=== PATIENT | female | born 1950 | race Caucasian/White ===

== ENCOUNTER 2019-02-23 14:02 | Inpatient (IN) ==
[2019-02-23 14:50] LABS: BASO# 0.04 X1000 (0.0-0.2); BASO% 0.4 % (0.0-0.8); EOS# 0.17 X1000 (0.0-0.7); EOS% 1.8 % (0.0-10.0); HEMATOCRIT 41.5 % (37.0-47.0); HEMOGLOBIN 13.8 g/dL (12.0-16.0); IMM GRAN# 0.04 X1000 (0.0-0.04); IMM GRAN% 0.4 % (0.0-0.5); LYMPH# 2.34 X1000 (1.2-3.4); LYMPH% 24.2 % (20.5-51.1); MCH 33.9 PG (27-31); MCHC 33.3 g/dL (33-37); MONO# 0.66 X1000 (0.11-0.59); MONO% 6.8 % (1.7-9.3); MPV 10.7 FL (7.4-10.4); NEUT# 6.43 X1000 (1.4-6.5); NEUT% 66.4 % (42.2-75.2); PLT 212 X1000 (130-400); RBC 4.07 XMIL (4.2-5.4); RDW 14.3 % (11.5-14.5); WBC 9.68 X1000 (4.8-10.8)
[2019-02-23 15:06] LABS: AGAP 11; ALB/GLOB RATIO 1.5; ALBUMIN 3.8 g/dL (3.5-5.0); ALKALINE PHOSPHATASE 29 U/L (32-104); BUN 9 mg/dL (8-22); CALCIUM 8.3 mg/dL (8.8-10.2); CHLORIDE 99 mmol/L (98-107); COSMO 269; CREATININE 0.7 mg/dL (0.5-0.9); ESTIMATED GFR > 60; GLUCOSE 103 mg/dL (70-104); GOT 172 U/L (10-30); GPT 125 U/L (10-36); POTASSIUM 3.2 mmol/L (3.5-5.1); SODIUM 135 mmol/L (136-145); TCO2 25 mmol/L (25-35); TOTAL PROTEIN 6.4 g/dL (6.3-8.3)
--- NOTE | 2019-02-23 15:08 | Diag Imaging Result Doc PS360 ---
EXAM: CT HEAD/C-SPINE W/O CONTRAST 02/23/2019 HISTORY: head contusion TECHNIQUE: This exam was performed using automated exposure control, adjustment of mA or kV according to patient size, and/or use of iterative reconstruction technique. COMMENT: There is no evidence of mass effect, bleed, or abnormal extra-axial fluid collection. There are some patchy subcortical white matter lucencies bilaterally consistent with chronic microvascular white matter disease. The visualized paranasal sinuses are clear. The calvarium is intact. Cervical spine: There are severe degenerative facet changes present at C3-4 and C4-5 on the left side. There is no evidence of fracture subluxation or prevertebral soft tissue swelling. There are calcifications in the disc spaces at C2-3, C3-4, C4-5 and C5-6 with osteophyte formation at the disc space at C7-T1. IMPRESSION: Chronic ischemic microvascular white matter disease. Degenerative disc disease and facet arthropathy. No evidence of acute bony abnormality in the cervical spine. Electronically signed by Jona Gutierrez 02/23/2019 3:06 PM
--- NOTE | 2019-02-23 15:25 | Diag Imaging Result Doc PS360 ---
EXAM: HIP W/PELVIS BILAT 2 VIEWS 02/23/2019 HISTORY: fall TECHNIQUE: AP pelvis and bilateral hips COMMENT: There is some calcium pyrophosphate deposition in the symphysis pubis. The joint spaces appear to be well maintained. There is no evidence of fracture or dislocation. IMPRESSION: No evidence of acute bony disease. Electronically signed by Jona Gutierrez 02/23/2019 3:22 PM
[2019-02-23 18:06] LABS: URINE SOURCE CATH
[2019-02-23 18:10] LABS: BILIRUBIN URINE NEGATIVE (NEGATIVE); BLOOD URINE NEGATIVE (NEGATIVE); COLOR YELLOW; GLUCOSE URINE NEGATIVE (NEGATIVE); KETONE URINE NEGATIVE (NEGATIVE); LEUKOCYTES URINE NEGATIVE (NEGATIVE); NITRITE URINE NEGATIVE (NEGATIVE); PH URINE 6.5; PROTEIN URINE NEGATIVE (NEGATIVE); TURBIDITY URINE CLEAR (CLEAR); UROBILINOGEN URINE NORMAL (NORMAL)
[2019-02-23 18:11] LABS: UR EPITHELIAL CELLS <10 /HPF (<10); URINE BACTERIA 2+ /HPF; URINE RBC <10 /HPF (<10); URINE WBC <10 /HPF (<10)
--- NOTE | 2019-02-23 18:56 | PROVIDER DOCUMENTATION ---
This chart was entered by Kell Nascimento Scribe, acting as scribe for Elliott Keen DO. HPI-Musculoskeletal Pain/Inj - GENERAL Chief Complaint: Fall Stated Complaint: fall from standing Time Seen by Provider: 02/23/19 14:06 Source: patient, EMS (first response) - HX OF PRESENT ILLNESS-MUSKULOSKELTAL Nature of Presenting Problem: 69 yowf presents to the ed via ems with c/o BLE weakness, occipital head tenderness 2cm area post fall in her kitchen, bilateral hip pain and lumbar pain. pt sts she was in her kitchen feeding her littledog and fgelt her BLE get weak. pt fell down to the floor landing on her buttocks and then hitting her occipital head on the kitchen floor Quality of Pain: reports: aching Severity in ED: moderate Onset/Duration: just prior to arrival Timing: improving, intermittent Modifying Factors: improves with: nothing Any recent injury?: Yes Locality of Occurance: Home Similar Symptoms Previously?: Yes Recently seen or treated by another doctor?: No - FALL INJURY Location of Pain/Injury: reports: head (occipital), back (lumbar), lower extremity (weakness) Reason for Fall: reports: other (became weak in BLE) Symptoms prior to fall:: reports: none Loss of Consciousness: no loss of consciousness Injury Associated Symptoms: reports: back/neck pain (lumbar), headaches (occipital), joint pain (bilateral hip pain). denies: chest pain, diaphoresis, dizziness, snap/crack/pop sensation, trouble walking Review of Systems - Adult - REVIEW OF SYSTEMS - ADULT Constitutional: denies: chills, fever Eyes: denies: blurred vision, double vision Ears, Nose, Mouth & Throat: reports: no symptoms reported Cardiovascular: denies: chest pain, palpitations, syncope Respiratory: denies: shortness of breath, wheezing Gastrointestinal: denies: abdominal pain, diarrhea, nausea, vomiting Genitourinary: reports: no symptoms reported Musculoskeletal: reports: see HPI, back pain (lumbar), joint pain (bilateral). denies: neck pain Integumentary: reports: no symptoms reported Neurological: reports: see HPI, headache/migraines (occipital tenderness 2cm). denies: ataxia, dizziness/vertigo, loss of balance, numbness, paresthesia, seizure, slurred speech, syncope, tremors Psychiatric: reports: no symptoms reported Endocrine: reports: no symptoms reported Hematologic/Lymphatic: reports: no symptoms reported Allergic/Immunologic: reports: no symptoms reported All Other Systems: Reviewed and Negative Past History - Adult - PAST MEDICAL HISTORY-ADULT Review of Records: reports: Nursing Assessment Review, Medications Reviewed Major Childhood Illnesses: reports: denies history Cardiovascular: reports: HTN Respiratory: reports: denies history Gastrointestinal: reports: GERD Obstetrical/Gynecological: reports: denies history Genitourinary: reports: denies history Musculoskeletal: reports: denies history Neurological: reports: denies history Endocrine/Immune: reports: denies history Other Conditions: reports: denies history - PRIOR SURGERIES/PROCEDURES Surgical/Procedure History: reports: reviewed, not pertinent - IMMUNIZATION STATUS Childhood Immunizations: See Nurse Assessment Flu Vaccine: See Nurse Assessment - FAMILY HISTORY Family History: reviewed, not pertinent - SOCIAL HISTORY Smoking: denies Substance Use: denies Alcohol Use Frequency: never Living Situation: family Physical Exam-Injury Related - Physical Exam-Injury Related Initial Vital Signs Reviewed: Yes General Appearance: appears well, alert, no apparent distress, obese Eyes: PERRL/EOMI, pink conjunctivae Head, Ears, Nose, Mouth & Throat: normocephalic/atraumatic, moist mucous memb ranes, normal ENT inspection Neck: non-tender, full range of motion, supple, normal inspection Respiratory: chest non-tender, lungs clear, normal breath sounds Cardiovascular: normal peripheral pulses, regular rate, rhythm Chest/Breast: deferred Abdominal Exam: normal bowel sounds, non tender, soft Female Genitalia/Pelvic Exam: deferred Rectal Exam: deferred Hemoccult Exam: deferred Lymphatic: no adenopathy Back Exam: normal inspection, other (lumbar tenderness to palpation) Extremity: normal range of motion, normal inspection, no pedal edema, no calf tenderness, normal capillary refill, tenderness (bilateral tenderness hips) Integumentary: normal color, warm/dry Neurologic: grossly normal, no motor/sensory deficits Psych/Mental Status: normal mood/affect, normal thought content, normal thought process, oriented x 3 - Glascow Coma Score Best Eye Response ([place]): (4) open spontaneously Best Verbal Response ([place]): (5) oriented Best Motor Response ([place]): (6) obeys commands [place] Total: 15 Progress - PLAN OF CARE/RESULTS Progress/Plan/Lab Results: Vital Signs - 8 hr 02/23/19 14:10 02/23/19 15:40 02/23/19 15:50 Temperature 97.8 F Pulse Rate 83 Respiratory Rate 18 Blood Pressure 152/58 O2 Sat by Pulse Oximetry 94 L 95 94 L 02/23/19 16:00 02/23/19 16:02 02/23/19 16:10 Temperature Pulse Rate Respiratory Rate Blood Pressure 119/84 O2 Sat by Pulse Oximetry 94 L 95 95 02/23/19 16:20 02/23/19 16:30 02/23/19 17:02 Temperature Pulse Rate Respiratory Rate Blood Pressure 107/63 O2 Sat by Pulse Oximetry 96 98 95 02/23/19 17:10 02/23/19 18:02 Temperature 98.6 F Pulse Rate 80 Respiratory Rate 18 Blood Pressure 150/58 O2 Sat by Pulse Oximetry 95 95 Laboratory Results - last 24 hr 02/23/19 02/23/19 02/23/19 14:36 14:36 17:58 WBC 9.68 RBC 4.07 L Hgb 13.8 Hct 41.5 MCV 102.0 H MCH 33.9 H MCHC 33.3 RDW Std Deviation 14.3 Plt Count 212 MPV 10.7 H Immature Gran % (Auto) 0.4 Neut % (Auto) 66.4 Lymph % (Auto) 24.2 [place] % (Auto) 6.8 Eos % (Auto) 1.8 Baso % (Auto) 0.4 Immature Gran # (Auto) 0.04 Neut # (Auto) 6.43 Lymph # (Auto) 2.34 [place] # (Auto) 0.66 H Eos # (Auto) 0.17 Baso # (Auto) 0.04 Sodium 135 L Potassium 3.2 L Chloride 99 Carbon Dioxide 25 Anion Gap 11 BUN 9 Creatinine 0.7 Estimated GFR/1.73 m2 > 60 BUN/Creatinine Ratio 13 Glucose 103 Calculated Osmolality 269 Calcium 8.3 L Total Bilirubin 0.50 AST 172 H ALT 125 H Alkaline Phosphatase 29 L Total Protein 6.4 Albumin 3.8 Globulin 2.6 Albumin/Globulin Ratio 1.5 Urine Source CATH Urine Color YELLOW Urine Turbidity CLEAR Urine pH 6.5 Ur Specific [place] 1.000 Urine Protein NEGATIVE Ur Glucose (Stick) NEGATIVE Ur Ketones (Stick) NEGATIVE Urine Blood NEGATIVE Urine Nitrite NEGATIVE Urine Bilirubin NEGATIVE Urobilinogen Dipstick NORMAL Urine Leukocytes NEGATIVE Urine WBC (Auto) <10 Urine RBC (Auto) <10 U Epithel Cells (Auto) <10 Urine Bacteria (Auto) 2+ Orders Category Date Time Status CT HEAD/C-SPINE W/O CONTRAST [CT] Stat Exams 02/23/19 14:15 Completed HIP W/PELVIS BILAT 2 VIEWS [RAD] Stat Exams 02/23/19 14:16 Completed CBC WITH ELECTRONIC DIFF [HEME] Stat Lab 02/23/19 14:36 Completed COMPREHENSIVE METABOLIC PANEL [CHEM] Stat Lab 02/23/19 14:36 Completed UA NIMS W/REFLEX CULT [URINALYSIS] Stat Lab 02/23/19 17:58 Completed URINE CULTURE [RM] Routine Lab 02/23/19 18:14 Received EKG [EKG] Stat Ther 02/23/19 14:20 Ordered Result Diagrams: 02/23/19 14:36 02/23/19 14:36 - REASSESSMENT Reassessment #1 Time Reassessed: 14:23 Status: improving - EKG 1 Time of EKG reading by physician:: 15:27 EKG Read and Signed by:: Elliott Keen EKG Interpretation (*Must complete 3 of following elements*): Abnormal Rate: 52 Rhythm: sinus sophia [place]: normal QRS: RBB (incomplete) OK Interval: normal ST Wave: normal Comments: st and t wave abnormality, consider anterior ischemia - XRAY 1 XRAY: Bilateral XRAY Study: Pelvis, Hip Impression: See EMR Report (EXAM: HIP W/PELVIS BILAT 2 VIEWS 02/23/2019 HISTORY: fall TECHNIQUE: AP pelvis and bilateral hips COMMENT: There is some calcium pyrophosphate deposition in the symphysis pubis. The joint spaces appear to be well maintained. There is no evidence of fracture or dislocation. IMPRESSION: No evidence of acute bony disease. Electronically signed by Jona Gutierrez 02/23/2019 3:22 PM 02/23/19 1522 Interpreting Physician: Jona Gutierrez MD Dictated Date/Time: 02/23/19 1521 cc: Elliott Keen DO;) - CT/MRI 1 CT Study: Cervical Spine, Head Impression: See EMR Report (EXAM: CT HEAD/C-SPINE W/O CONTRAST 02/23/2019 HISTORY: head contusion TECHNIQUE: This exam was performed using automated exposure control, adjustment of mA or kV according to patient size, and/or use of iterative reconstruction technique. COMMENT: There is no evidence of mass effect, bleed, or abnormal extra-axial fluid collection. There are some patchy subcortical white matter lucencies bilaterally consistent with chronic microvascular white matter disease. The visualized paranasal sinuses are clear. The calvarium is intact. Cervical spine: There are severe degenerative facet changes present at C3-4 and C4-5 on the left side. There is no evidence of fracture subluxation or prevertebral soft tissue swelling. There are calcifications in the disc spaces at C2-3, C3-4, C4-5 and C5-6 with osteophyte formation at the disc space at C7-T1. IMPRESSION: Chronic ischemic micro vascular white matter disease. Degenerative disc disease and facet arthropathy. No evidence of acute bony abnormality in the cervical spine. Electronically signed by Jona Gutierrez 02/23/2019 3:06 PM 02/23/19 1506 Interpreting Physician: Jona Gutierrez MD Dictated Date/Time: 02/23/19 150 cc: Elliott Keen DO;) - CONSULTS/PCP/HOSPITALIST Notification #1 *Consult/PCP/Hospitalist*: [place] Time Discussed: 18:54 Consult Disposition: Will see in ED Departure - Departure Date of Disposition Decision: 02/23/19 Time of Disposition Decision: 18:55 DIAGNOSIS: Failure to thrive, Fall Disposition: ADMITTED INPATIENT 09 Certified Medical Emergency: Emergent Condition: Fair Referrals and Follow-Ups: None,PCP [Primary Care Provider] - - Critical Care Note This patient required my direct & personal management of CC.: No Attestation - Physician/ JODY Attestation Patient care was provided by Advanced Practice Provider:: No The physician spent face to face time with patient:: Yes Advanced Practice Provider documentation review:: Supervising physician onsite and consulted in the evaluation and care of this patient. The physician did have a face to face encounter with the patient. This chart was documented by the indicated scribe, (Kell Nascimento Scribe) and accurately reflects the services I performed and decisions made by me, Elliott Keen DO, as attested by the provider's signature.
[2019-02-23] MEDS ORDERED: KLOR-CON PO ONE (20:09)
[2019-02-23] MEDS ORDERED: FLEXERIL PO PRN (20:15)
[2019-02-23] MEDS ORDERED: TYLENOL PO PRN (20:16)
[2019-02-23] MEDS ORDERED: ZOFRAN IV PRN (20:16)
[2019-02-23] MEDS ORDERED: NS 1,000 ML IV SCH (20:30)
[2019-02-23] MEDS: FISH OIL CONCENTRATE PO SCH (22:32)
[2019-02-23] MEDS: LYRICA PO SCH (22:33)
[2019-02-23] MEDS: LIPITOR PO SCH (22:33)
[2019-02-23] MEDS: SINEMET 25/100 PO SCH (22:33)
[2019-02-23] MEDS: NORCO-10 PO PRN (22:33)
[2019-02-23] MEDS: XANAX PO SCH (22:33)
[2019-02-23] MEDS: KLOR-CON PO SCH (22:34)
[2019-02-23] MEDS: LOVENOX SUBQ SCH (22:34)
[2019-02-23] MEDS: TRICOR PO SCH (22:49)
[2019-02-23] MEDS: NORVASC PO SCH (23:16)
--- NOTE | 2019-02-24 03:53 | HISTORY AND PHYSICAL ---
PRIMARY CARE PROVIDER: None. CHIEF COMPLAINT: Weakness with fall. HISTORY OF PRESENT ILLNESS: Ms. Beth is a 69-year-old female who came into the emergency room after walking with her dog. She felt weakness in her legs, fell backwards hitting the occipital portion of her head as well as her buttocks. She did not lose consciousness. On arrival to the emergency room, a CT of her head and neck was obtained which showed chronic ischemic microvascular white matter disease, degenerative disk disease and facet arthropathy. No acute intracranial or C-spine process. Hip and pelvis x-rays showed no acute bony disease. She will be admitted to the medical floor further evaluation and treatment. PAST MEDICAL HISTORY: 1. Hypertension. 2. GERD. 3. Tobacco use. 4. Early dementia. 5. Hyperlipidemia. PREVIOUS SURGICAL HISTORY: 1. Hysterectomy. 2. Appendectomy. 3. Back surgery times 2. 4. Lipoma removal times 2 or 3. FAMILY HISTORY: Father had heart and lung disease. The patient states primarily related to COPD and tobacco use. Mother had liver disease from drinking. ALLERGIES: Valium, Levaquin, Xarelto, Requip, simvastatin, Augmentin, penicillin and tetracyclines. HOME MEDICATIONS: 1. Celebrex 50 mg p.o. at bedtime. 2. Xanax 0.5 mg p.o. at bedtime. 3. Norvasc 10 mg p.o. at bedtime. 4. Atenolol 50 mg p.o. daily. 5. Lipitor 80 mg p.o. at bedtime. 6. Carbidopa/levodopa 25/100 p.o. at bedtime. 7. Flexeril 10 mg p.o. t.i.d. 8. TriCor 145 mg p.o. at bedtime. 9. [place] 10 one p.o. t.i.d. 10.Lovaza 1 capsule p.o. b.i.d. 11.Omeprazole 20 mg p.o. daily. 12.Potassium chloride 20 mEq p.o. b.i.d. 13.Lyrica 75 mg p.o. b.i.d. 14.Trazodone 50 mg p.o. daily. REVIEW OF SYSTEMS: Fourteen point review of systems conducted with the patient. She has around a 2 cm sore spot to the occipital portion of her head. She denies other complaints. Other pertinent positives are listed above in the HPI. All other systems reviewed and found to be negative. PHYSICAL EXAMINATION: VITAL SIGNS: Temperature 98, pulse 57, respirations 16, blood pressure 154/59, oxygen saturation 97% on room air. GENERAL: Pleasant 69-year-old female lying in the ER stretcher, answers all questions appropriately. She is alert and oriented times 3. HEENT: Head is normocephalic. A 2-cm raised portion to the occipital portion of her head that is tender to palpation secondary to fall. Pupils are equal, round, reactive to light. Extraocular eye movement is intact. Sclerae are anicteric. Conjunctiva is pink. Oral mucosa is mildly dry. NECK: Supple. No JVD. No thyromegaly. Trachea is midline. No cervical lymphadenopathy. CARDIAC: S1, S2 appreciated. No murmurs, gallops, or rubs. LUNGS: Clear to auscultation bilaterally. No rhonchi, wheezes, rales. Symmetric rise and fall with respirations. ABDOMEN: Soft, nondistended, nontender. Bowel sounds present all 4 quadrants, normoactive. No pulsatile mass. No organomegaly. EXTREMITIES: No clubbing, cyanosis, or edema. One-plus pedal pulses bilaterally. GENITOURINARY: No bladder distention. Patient voids. Otherwise deferred. NEUROLOGICAL: Alert and oriented times 3. Cranial nerves II through XII appear to be grossly intact. DIAGNOSTIC DATA: A CT of the hip and pelvis: No acute bony abnormality. Head and CT: No intracranial process. No C-spine acute process. Degenerative disk disease and chronic microvascular changes were noted. LABORATORY DATA: CBC within normal limits. Sodium 135. Potassium 3.2. Chloride 99. Carbon dioxide 25. BUN 9. Creatinine 0.7. Glucose 103. ALT 125. AST 172. Urine unremarkable. ASSESSMENT AND PLAN: 1. Weakness with fall, aware. Patient is moving her legs well on examination. We will order physical therapy. 2. Transaminitis. Order right upper quadrant ultrasound. I am unsure if this is acute or chronic elevation of her liver enzymes. 3. Hypokalemia. We will 40 mEq of potassium and recheck. 4. Mild fluid volume depletion. Normal saline times 1 L was given in the emergency room. 5. Hypertension and hyperlipidemia. Continue home medications. Further recommendations per patient clinical course. Dictated by LUISA Martínez for Jose Cuadra MD cc: LUISA Martínez MD
[2019-02-24 05:57] LABS: URINE SOURCE CLEAN CATCH
[2019-02-24 06:03] LABS: BILIRUBIN URINE NEGATIVE (NEGATIVE); BLOOD URINE TRACE (NEGATIVE); COLOR YELLOW; GLUCOSE URINE NEGATIVE (NEGATIVE); KETONE URINE NEGATIVE (NEGATIVE); LEUKOCYTES URINE NEGATIVE (NEGATIVE); NITRITE URINE NEGATIVE (NEGATIVE); PH URINE 6.5; PROTEIN URINE NEGATIVE (NEGATIVE); SP GRAVITY URINE 1.002; TURBIDITY URINE HAZY (CLEAR); UROBILINOGEN URINE NORMAL (NORMAL)
[2019-02-24 06:04] LABS: UR EPITHELIAL CELLS <10 /HPF (<10); URINE BACTERIA 4+ /HPF; URINE RBC <10 /HPF (<10); URINE WBC <10 /HPF (<10)
[2019-02-24 07:32] LABS: AGAP 11; ALB/GLOB RATIO 1.6; ALBUMIN 3.5 g/dL (3.5-5.0); ALKALINE PHOSPHATASE 28 U/L (32-104); BUN 9 mg/dL (8-22); CALCIUM 8.7 mg/dL (8.8-10.2); CHLORIDE 108 mmol/L (98-107); COSMO 280; CREATININE 0.6 mg/dL (0.5-0.9); ESTIMATED GFR > 60; GLUCOSE 93 mg/dL (70-104); GOT 122 U/L (10-30); GPT 32 U/L (10-36); SODIUM 141 mmol/L (136-145); TCO2 22 mmol/L (25-35); TOTAL BILIRUBIN 0.53 mg/dL (0.20-1.00); TOTAL PROTEIN 5.7 g/dL (6.3-8.3)
--- NOTE | 2019-02-24 08:22 | Diag Imaging Result Doc PS360 ---
EXAM: US GB < RUQ (LIMITED) 02/24/2019 HISTORY: elevated lfts TECHNIQUE: Right upper quadrant ultrasound COMMENT: The pancreas is unremarkable in appearance. The liver is hyperechoic. The visualized portions of the aorta and inferior vena cava are normal in appearance. The gallbladder is clear and nontender. There is antegrade flow in the portal vein. The right kidney is without evidence of hydronephrosis or mass. There are no abnormal fluid collections. There is no evidence of biliary dilatation the common bile duct measuring 4 mm. IMPRESSION: Hepatic steatosis. Electronically signed by Jona Gutierrez 02/24/2019 8:20 AM
[2019-02-24] MEDS ORDERED: DESYREL PO SCH (09:00)
--- NOTE | 2019-02-24 09:18 | PROGRESS NOTE ---
DATE: 02/24/2019 SUBJECTIVE: Patient has no new complaints. States she still feels generally weak. PHYSICAL EXAMINATION: Vital Signs: Temperature 97.8, pulse 61, respiratory rate 20, BP 124/54. General: The patient is in no current respiratory distress. Very pleasant to talk with. HEENT: Normocephalic. Neck: Supple. Cardiovascular: Regular rate. Chest: Clear and unlabored. Abdomen: Soft and nondistended. Extremities: Moves all extremities. No edema. Neurologic: No focal changes. She is awake, alert, oriented x3. LABS: CMP is essentially normal. AST 122, ALT 32. ASSESSMENT: 1. Generalized weakness. 2. Transaminitis. Right upper quadrant ultrasound is pending. Currently, her liver functions have improved. AST was 172, currently 122. ALT was 125, currently down to 32. Expect this may be chronic. 3. Hyperkalemia. 4. Mild volume depletion. 5. Hypertension. 6. Hyperlipidemia. PLAN: We will continue patient in the hospital. We will attempt to ambulate and hopefully home either today or tomorrow if she improves. cc: Jose Cuadra MD
[2019-02-24] MEDS: KLOR-CON PO SCH ×2 (10:59→20:44)
[2019-02-24] MEDS: LYRICA PO SCH ×2 (10:59→20:43)
[2019-02-24] MEDS: FISH OIL CONCENTRATE PO SCH ×2 (10:59→20:44)
[2019-02-24] MEDS: PRILOSEC PO SCH (10:59)
[2019-02-24] MEDS: TENORMIN PO SCH (10:59)
[2019-02-24] MEDS: NORCO-10 PO PRN ×2 (11:43→20:42)
[2019-02-24] MEDS ORDERED: NICODERM PATCH TD ONE (19:51)
[2019-02-24] MEDS: LIPITOR PO SCH (20:43)
[2019-02-24] MEDS: TRICOR PO SCH (20:43)
[2019-02-24] MEDS: SINEMET 25/100 PO SCH (20:43)
[2019-02-24] MEDS: XANAX PO SCH (20:43)
[2019-02-24] MEDS: NORVASC PO SCH (20:44)
[2019-02-24] MEDS: LOVENOX SUBQ SCH (20:44)
--- NOTE | 2019-02-25 03:49 | HISTORY AND PHYSICAL ---
ADDENDUM: Patient seen and examined by myself. Full note dictated and discussed with nurse practitioner. Patient presented to the hospital with increased generalized weakness, frequent falls. The son notes that she has been more depressed since her brother . She has had decreased oral intake, decreased physical activity. She has known history of DJD, scoliosis, restless legs, fibromyalgia, hypertension, high cholesterol. Interestingly, her liver functions are elevated AST and ALT [*] 70. She has recently had vertigo approximately 2 to 3 months ago when she states that she was told that everything was fine [*] We will admit her to the hospital. Started on IV fluids. Get physical therapy involved and will follow. We will work her for liver function. cc: Jose Cuadra MD
[2019-02-25 06:26] LABS: HEMATOCRIT 36.6 % (37.0-47.0); HEMOGLOBIN 11.8 g/dL (12.0-16.0); MCH 33.4 PG (27-31); MCHC 32.2 g/dL (33-37); MCV 103.7 FL (81-99); RBC 3.53 XMIL (4.2-5.4); RDW 13.9 % (11.5-14.5); WBC 5.79 X1000 (4.8-10.8)
[2019-02-25 07:15] LABS: AGAP 10; ALB/GLOB RATIO 1.4; ALKALINE PHOSPHATASE 23 U/L (32-104); BUN 9 mg/dL (8-22); CALCIUM 8.5 mg/dL (8.8-10.2); CHLORIDE 110 mmol/L (98-107); COSMO 278; CREATININE 0.6 mg/dL (0.5-0.9); ESTIMATED GFR > 60; GLUCOSE 91 mg/dL (70-104); GOT 115 U/L (10-30); GPT 42 U/L (10-36); MAGNESIUM 1.5 mg/dL (1.5-2.7); SODIUM 140 mmol/L (136-145); TCO2 20 mmol/L (25-35); TOTAL BILIRUBIN 0.37 mg/dL (0.20-1.00); TOTAL PROTEIN 5.2 g/dL (6.3-8.3)
--- NOTE | 2019-02-25 09:39 | EKG Report ---
Test Performed on : 02/23/2019 3:27:49 PM Test Reason : fall Blood Pressure : / mmHG Vent. Rate : 052 BPM Atrial Rate : 052 BPM P-R Int : 182 ms QRS Dur : 104 ms QT Int : 452 ms P-R-T Axes : 048 030 005 degrees QTc Int : 420 ms Sinus bradycardia. Incomplete right bundle branch block ST & T wave abnormality, consider anterior ischemia Abnormal ECG No previous ECGs available Unconfirmed Result
[2019-02-25] MEDS: KLOR-CON PO SCH ×2 (10:37→22:32)
[2019-02-25] MEDS: FISH OIL CONCENTRATE PO SCH ×2 (10:37→22:33)
[2019-02-25] MEDS: PRILOSEC PO SCH (10:37)
[2019-02-25] MEDS: LYRICA PO SCH ×2 (10:37→22:33)
[2019-02-25] MEDS: NORCO-10 PO PRN ×2 (10:38→18:30)
[2019-02-25] MEDS: NICODERM PATCH TD SCH (10:39)
[2019-02-25] MEDS: TENORMIN PO SCH (10:39)
--- NOTE | 2019-02-25 14:22 | PROGRESS NOTE ---
DATE: 02/25/2019 SUBJECTIVE: Patient reports feeling still weak. Denies any other complaints. OBJECTIVE: Vital Signs: Temperature 98.6 degrees, heart rate 61, respiratory rate 22, blood pressure 128/55, O2 saturation 96% on room air. General Examination: This is a 69-year-old female, lying in bed, in no acute distress. Cardiovascular: S1, S2 heard. No murmurs, gallops, or rubs. Regular rate and rhythm. Respiratory: Clear bilaterally to auscultation. No work of breathing or using accessory muscles. Abdomen is soft. Nontender to palpation. Bowel sounds present. No organomegaly. Extremities: No clubbing, cyanosis, or edema. Peripheral pulses present in both legs. Neurological: The patient is alert, oriented x3. Moves 4 extremities. LABORATORY DATA: Reviewed. ASSESSMENT AND PLAN: 1. Generalized weakness status post fall. Patient is working with Physical Therapy. 2. Transaminitis. We have found out in the abdominal ultrasound that this patient has hepatic steatosis so I think those numbers will be chronically elevated. We have trended those numbers while this patient is here. 3. Hypokalemia, resolved. 4. Hypertension. Blood pressure is under control. We will continue with same management. DISPOSITION: Patient agreed with physical therapy evaluation and possibility of going to rehabilitation facility. We have consulted social services aide. We will go from there. cc: Ernie Lopez MD
[2019-02-25] MEDS ORDERED: DESYREL PO SCH (21:00)
[2019-02-25] MEDS: TRICOR PO SCH (22:32)
[2019-02-25] MEDS: XANAX PO SCH (22:33)
[2019-02-25] MEDS: SINEMET 25/100 PO SCH (22:33)
[2019-02-25] MEDS: LIPITOR PO SCH (22:33)
[2019-02-25] MEDS: LOVENOX SUBQ SCH (22:34)
[2019-02-25] MEDS: DULCOLAX PR SCH (22:35)
[2019-02-25] MEDS: NORVASC PO SCH (23:35)
[2019-02-26 06:26] LABS: BASO# 0.04 X1000 (0.0-0.2); BASO% 0.7 % (0.0-0.8); EOS# 0.14 X1000 (0.0-0.7); EOS% 2.3 % (0.0-10.0); HEMATOCRIT 36.2 % (37.0-47.0); HEMOGLOBIN 11.7 g/dL (12.0-16.0); IMM GRAN# 0.05 X1000 (0.0-0.04); IMM GRAN% 0.8 % (0.0-0.5); LYMPH# 2.52 X1000 (1.2-3.4); LYMPH% 41.7 % (20.5-51.1); MCH 33.3 PG (27-31); MCHC 32.3 g/dL (33-37); MCV 103.1 FL (81-99); MONO# 0.56 X1000 (0.11-0.59); MONO% 9.3 % (1.7-9.3); NEUT# 2.74 X1000 (1.4-6.5); NEUT% 45.2 % (42.2-75.2); PLT 178 X1000 (130-400); RBC 3.51 XMIL (4.2-5.4); RDW 13.8 % (11.5-14.5); WBC 6.05 X1000 (4.8-10.8)
[2019-02-26 06:53] LABS: AGAP 8; ALB/GLOB RATIO 1.5; ALBUMIN 3.1 g/dL (3.5-5.0); ALKALINE PHOSPHATASE 23 U/L (32-104); BUN 9 mg/dL (8-22); CALCIUM 8.6 mg/dL (8.8-10.2); CHLORIDE 110 mmol/L (98-107); COSMO 280; CREATININE 0.5 mg/dL (0.5-0.9); ESTIMATED GFR > 60; GLUCOSE 95 mg/dL (70-104); GOT 110 U/L (10-30); GPT 16 U/L (10-36); POTASSIUM 3.6 mmol/L (3.5-5.1); SODIUM 141 mmol/L (136-145); TCO2 23 mmol/L (25-35); TOTAL BILIRUBIN 0.41 mg/dL (0.20-1.00); TOTAL PROTEIN 5.2 g/dL (6.3-8.3)
[2019-02-26 07:50] VITALS: BP 126/51
[2019-02-26] MEDS ORDERED: DULCOLAX PR SCH (09:00)
[2019-02-26] MEDS ORDERED: MIRALAX PO SCH (09:00)
--- NOTE | 2019-02-26 11:33 | DISCHARGE SUMMARY ---
ADMISSION DATE: 02/23/2019 DISCHARGE DATE: 02/26/2019 ADMISSION DIAGNOSIS: 1. Weakness with fall. 2. Transaminitis. 3. Hypokalemia. 4. Fluid volume depletion. 5. Hypertension. 6. Hyperlipidemia. DISCHARGE DIAGNOSIS: 1. Weakness with fall. 2. Transaminitis. 3. Hypokalemia. 4. Fluid volume depletion. 5. Hypertension. 6. Hyperlipidemia. CONSULTATIONS: None. DIAGNOSTIC PROCEDURES AND FINDINGS: Head, C-spine, CT 02/23/2019: Chronic ischemic microvascular white matter disease, degenerative disk disease, and facet arthropathy. No evidence of acute bony abnormality in the C-spine. Hip and pelvis x-ray 02/23/2019: No evidence of acute bony disease. Abdominal ultrasound 02/24/2019: Hepatic steatosis. HOSPITAL COURSE: Mrs. Beth is a 69-year-old female, who came to the ER after falling while walking her dog. She hit the back of her head but did not lose consciousness. She came to the ER. Head and C-spine CT was done, which did not show anything acute. Multiple other images were also done and were negative. Her laboratory data did show some mild transaminitis, hypokalemia, which was evaluated with a right upper quadrant ultrasound, which did not show anything acute. Her hypokalemia was treated appropriately. For her weakness, we consulted physical therapy and psychiatric social worker supervisor. She did improve her strength with physical therapy and the recommendation was that she go home with home health. [facility] was set up by our psychiatric social worker supervisor, and she is now stable for discharge home. DISCHARGE MEDICATIONS: Tylenol 650 mg p.o. every 6 hours as needed, Norvasc 10 mg at bedtime, atenolol 50 mg daily, Carbidopa Levodopa 25/100 1 p.o. at bedtime, Celebrex 50 mg p.o. at bedtime, Flexeril 10 mg p.o. t.i.d., Tricor 145 mg p.o. at bedtime, [place] 10 one 3 times a day as needed, Lovaza 1 capsule p.o. b.i.d, potassium chloride 20 mEq p.o. b.i.d., Lyrica 75 mg p.o. b.i.d., Desyrel 50 mg daily, Xanax 0.5 mg p.o. at bedtime, Lipitor 80 mg at bedtime, omeprazole 20 mg daily, MiraLAX 17 g daily, nicotine patch 21 mg daily. DISCHARGE LABS: WBC 6.05, hemoglobin 11.7, hematocrit 36.2, platelet count 178. Sodium 141, potassium 3.6, chloride 110, CO2 23, anion gap 8, BUN 9, creatinine 0.5, glucose 95, calcium 8.6, bilirubin 0.41, AST 110, ALT 16, alkaline phosphatase 23, protein 5.2, albumin 3.1. DISCHARGE DIET: Heart healthy. DISCHARGE ACTIVITY: Resume activity as tolerated. DISPOSITION AND OTHER DISCHARGE INSTRUCTIONS: The patient is discharged home with home health. She is to follow up with Dr. Keen, her PCP, within 2-3 weeks or sooner if needed. She is to continue all home medications and return to the ER or call 911 for worsening complaints or concerns. All questions answered. DISCHARGE TIME: Greater than 35 minutes. Dictated by LUISA Sears for Ernie Lopez MD Addendum: Patient seen and examined by myself. Agree with LUISA note. It reflects my assessment and plan. Patient is being discharged in stable condition. cc: LUISA Sears MD Thomas E. Lockard, DO LEALD
[2019-02-26] MEDS: NICODERM PATCH TD SCH (11:34)
[2019-02-26] MEDS: PRILOSEC PO SCH (11:34)
[2019-02-26] MEDS: NORCO-10 PO PRN (11:35)
[2019-02-26] MEDS: TENORMIN PO SCH (11:35)
[2019-02-26] MEDS: FISH OIL CONCENTRATE PO SCH (11:35)
[2019-02-26] MEDS: DULCOLAX PR SCH (11:35)
[2019-02-26] MEDS: KLOR-CON PO SCH (11:35)
[2019-02-26] MEDS: LYRICA PO SCH (11:37)
[2019-02-26 12:27] LABS: HEPATITIS PROFILE ACUTE SEE COMMENTS
== END 2019-02-26 12:03 | disposition home health service (06) | DRG 948 ==
LOC: ED 14:02 → SUATTDRO 20:41 → 4N 20:41
PROVIDERS: ATTEND Internal Medicine
CPT/HCPCS: 51701; 70450; 72125; 73521; 76705; 80053; 80074; 81001; 83735; 84443; 85025; 85027; 87088; 93005; 97161; 97530; 99285; A9270; J1650; J7030; P9612